=== PATIENT | male | born 1985 | race Caucasian/White ===

== ENCOUNTER 2021-10-04 20:28 | Emergency (ER) | payer OTHER ==
[2021-10-04] MEDS ORDERED: Lidocaine 1% 5 ML VIAL INJECT ONE (20:29)
[2021-10-04] MEDS ORDERED: Bacitracin Oint 1 GM U/D Packet TOP ONE (20:29)
== END 2021-10-04 21:18 | disposition home or self-care (01) ==
LOC: JP.ED 20:28
DX: S61.441A Puncture wound with foreign body of right hand, initial encounter (principal); W45.8XXA Other foreign body or object entering through skin, initial encounter
CPT/HCPCS: 99281; 99283